=== PATIENT | female | born 1975 | race African-American/Black ===

== ENCOUNTER 2019-06-04 23:57 | Emergency (ER) | payer MEDICAID ==
[~2019-06-04] VITALS: Ht 152.4 cm; Wt 55.8 kg
--- NOTE | 2019-06-05 00:10 | NUR ---
ED Nurse Note: Recieved pt JERMAIN from home, here with c/o severe 10/ sudden back pain, denies injury, no hx of sciatica, pt has concern its her kidneys, pt denies cp, sob, fevers, or any other complaints or discomforts, pt is right side lying, states cant walk or move her legs.
[2019-06-05] MEDS ORDERED: Morphine Sulfate 4mg/ml Inj (IV USE ONLY) IVP ONE ×2 (00:30→01:45)
[2019-06-05] MEDS ORDERED: Ketorolac 30mg Inj IV ONE (00:30)
[2019-06-05 00:56] LABS: BASOPHILS % (AUTO) 1.1 % (0.0-2.0); EOSINOPHILS % (AUTO) 0.8 % (0.0-3.0); HEMATOCRIT 38.9 % (37.0-47.0); LYMPHOCYTES % (AUTO) 25.1 % (20.0-45.0); MEAN CORPUSCULAR VOLUME 79 FL (80-99); MONOCYTES % (AUTO) 10.1 % (1.0-10.0); PLATELET COUNT 282 K/UL (150-450); RED BLOOD COUNT 4.94 M/UL (4.20-5.40); RED CELL DISTRIBUTION WIDTH 13.1 % (11.6-14.8); WHITE BLOOD COUNT 7.3 K/UL (4.8-10.8)
[2019-06-05 01:06] LABS: ANION GAP 8 mmol/L (5-15); BLOOD UREA NITROGEN 16 mg/dL (7-18); CALCIUM 9.3 MG/DL (8.5-10.1); CARBON DIOXIDE 27 MMOL/L (21-32); CHLORIDE 106 MMOL/L (98-107); CREATININE 1.1 MG/DL (0.55-1.30); POTASSIUM 3.8 MMOL/L (3.5-5.1); SODIUM 141 MMOL/L (136-145)
--- NOTE | 2019-06-05 02:00 | NUR ---
ED Nurse Note: Pt medicated as ordered, mild relief with pain level at 7/10, pt now able to ambulate, assisted to bathroom, urine sample sent, pt now going to imaging, will monitor for pain relief or any changes when pt returns to department.
[2019-06-05 02:06] LABS: APPEARANCE,URINE SLIGHTLY CLOUDY; BILIRUBIN, URINE NEGATIVE (NEGATIVE); COLOR,URINE PALE YELLOW; GLUCOSE, URINE (UA) NEGATIVE (NEGATIVE); KETONES,URINE NEGATIVE (NEGATIVE); NITRITE,URINE NEGATIVE (NEGATIVE); PH,URINE 7 (4.5-8.0); PROTEIN,URINE 2+ (NEGATIVE); UROBILINOGEN,URINE NORMAL MG/DL (0.0-1.0)
[2019-06-05 02:13] VITALS: BP 122/81
[2019-06-05 02:35] LABS: LEUKOCYTE ESTERASE ,URINE 2+ (NEGATIVE)
[2019-06-05] MEDS ORDERED: cefTRIAXone 1 GM in NS 55 ML IVPB ONE (02:45)
--- NOTE | 2019-06-05 02:49 | Diagnostic Imaging Report ---
Indication: Abdominal pain Technique: Continuous helical transaxial imaging of the abdomen and pelvis was obtained from the lung bases to the pubic symphysis. No intravenous contrast was administered. Coronal 2-D reformats were also obtained. Automatic Exposure Control was utilized. Total Dose length Product (DLP): [address] Dose Index Volume (CTDIvol): 25 mGy Comparison: none Findings: Bilateral breast implants demonstrated. The lung bases are clear. No nephrolithiasis or hydronephrosis identified. Gallbladder is unremarkable. No free fluid seen. Diverticula noted within the colon. No definite diverticulitis appreciated. Appendix is normal. In the right adnexa there is a heterogeneous fat-containing mass with the discrete areas of ossification or calcium. Findings consistent with a ovarian dermoid and measures about 5.2 x 4 x 4.5 cm. Bladder is unremarkable. IMPRESSION: 5 cm right ovarian dermoid. Diverticulosis of the colon. [facility] has communicated the preliminary results to the Emergency Department. Their findings are largely concordant with this report. . The CT scanner at [facility] is accredited by the [employer] and the scans are performed using dose optimization techniques as appropriate to a performed exam including Automatic Exposure control.
[2019-06-05 03:10] VITALS: BP 126/76
[2019-06-05] MEDS ORDERED: IBUPROFEN600 MG ORAL (03:27)
[2019-06-05] MEDS ORDERED: CEPHALEXIN500 MG ORAL (03:27)
[2019-06-05] MEDS ORDERED: HYDROCODON-ACE1 EA15 ORAL (03:27)
--- NOTE | 2019-06-05 03:27 | Emergency Room Report ---
History of Present Illness General Chief Complaint: Back Pain-No Injury Source: Patient Present Illness HPI Is a 44-year-old female with no past medical history. She presents with chief complaint of back pain. Pain been ongoing for about 4 5 days. Mostly in the left side. This occur while she was at her daughter's school. She was bending over and when she stood up well it quickly she felt the pain in her back. Over the next day is been progressively worse. Now she came in by 911 because she can move without hurting. No radiation. Pain is mostly left mid back. Radiating to the right side. No incontinence of bowel or urine. No trauma. No fever chills. Denies any other complaint. Allergies: Coded Allergies: No Known Allergies (Unverified , 06/04/19) Patient History Past Medical History: see triage record, old chart reviewed Past Surgical History: other Pertinent Family History: none Social History: Denies: smoking Now: No Immunizations: other Reviewed Nursing Documentation: PMH: Agreed; PSxH: Agreed Nursing Documentation-PMH Past Medical History: No Stated History Review of Systems Eye: Denies: eye pain, blurred vision ENT: Denies: ear pain, nose congestion, throat swelling Respiratory: Denies: cough, shortness of breath Cardiovascular: Denies: chest pain, palpitations Gastrointestinal: Denies: abdominal pain, diarrhea, nausea, vomiting Musculoskeletal: Reports: back pain; Denies: joint pain Skin: Denies: rash Neurological: Denies: headache, numbness Endocrine: Denies: increased thirst, increased urine Hematologic/Lymphatic: Denies: easy bruising All Other Systems: negative except mentioned in HPI Physical Exam Vital Signs Date Time Temp Pulse Resp B/P (MAP) Pulse Ox O2 Delivery O2 Flow Rate FiO2 06/04/19 23:54 99.0 72 18 125/81 (96) 99 Room Air Vitals normal Sp02 EP Interpretation: reviewed, normal General Appearance: well appearing, no apparent distress, alert Head: normocephalic, atraumatic Eyes: bilateral eye PERRL, bilateral eye EOMI ENT: hearing grossly normal, normal pharynx Neck: full range of motion, supple, no meningismus Respiratory: chest non-tender, lungs clear, normal breath sounds Cardiovascular #1: regular rate, rhythm, no murmur Gastrointestinal: normal bowel sounds, non tender, no mass, no organomegaly, no bruit, non-distended Musculoskeletal: back normal - No midline tenderness. Mild spasm and tenderness to the left upper lumbar paraspinous muscle., gait/station normal, normal range of motion Psychiatric: mood/affect normal Medical Decision Making Diagnostic Impression: Primary Impression: Back pain Qualified Codes: M54.5 - Low back pain Additional Impression: UTI (urinary tract infection) Qualified Codes: N30.00 - Acute cystitis without hematuria ER Course This patient presents with back pain. This is most likely musculoskeletal in nature. She felt much better now. Able to move now. She may have a urinary tract infection. On reexamination no CVA tenderness. I doubt this is pyelonephritis. No evidence of cauda equina syndrome, spinal epidural abscess or neoplastic process. CT scan showed a right ovarian dermoid cyst. Patient said she been told that before. CT/MRI/US Diagnostic Results CT/MRI/US Diagnostic Results : Imaging Test Ordered: CT abdomen pelvis Impression Read by radiologist. Right ovarian dermoid measuring 5.2 x 4 x 4.8 cm. Last Vital Signs Date Time Temp Pulse Resp B/P (MAP) Pulse Ox O2 Delivery O2 Flow Rate FiO2 06/05/19 02:13 99.0 70 18 122/81 99 Room Air Status: improved Disposition: HOME, SELF-CARE Condition: Improved Scripts Ibuprofen* (MOTRIN*) 600 Mg Tablet 600 MG ORAL THREE TIMES A DAY, #30 TAB 0 Refills Prov: Ham Holland MD 06/05/19 Cephalexin* (KEFLEX*) 500 Mg Capsule 500 MG ORAL 2100, #21 CAP Prov: Ham Holland MD 06/05/19 Hydrocodone/Acetaminophen 5-325* (HYDROCODONE/ACETAMINOPHEN 5-325*) 1 Each Tablet 1 TAB ORAL Q6H PRN for For Pain, #20 TAB 0 Refills Prov: Ham Holland MD 06/05/19 Referrals: NOT CHOSEN [facility]/,REFERRING (PCP) Patient Instructions: Back Pain, Adult Additional Instructions: Follow-up with your doctor in 7 days. If not better, you may need an MRI of your back. Return if symptoms worsen. Ham Holland MD Jun 05, 2019 03:27
--- NOTE | 2019-06-05 03:30 | NUR ---
ER DISCHARGE NOTE: Patient is cleared to be discharged per ERMD, pt is aox4, on room air, with stable vital signs. pt was given dc and prescription instructions, pt was able to verbalize understanding, pt id band and iv site removed without complications. pt is able to ambulate with steady gait. pt took all belongings.
[2019-06-05 03:35] VITALS: BP 122/81
== END 2019-06-05 03:35 | disposition home or self-care (01) ==
LOC: EDBD 23:57 → EMR 06-05 00:15
DX: N30.00 Acute cystitis without hematuria (principal); M54.5 Low back pain
CPT/HCPCS: 36415; 74176; 80048; 81001; 81025; 84703; 85025; 87086; 96365; 96375; 96376; J0696; J1885; J2270; J2405; Z7502; 99284